=== PATIENT | female | born 1995 | race Two or more races ===

== ENCOUNTER → 2020-03-22 | Emergency (ER) | payer MEDICAID, OTHER ==
[~2020-03-22] VITALS: Ht 154.9 cm; Wt 49.9 kg
[~2020-03-22] MED LIST: ACETAMINOPHEN 325 MG TAB PO ONE; MORPHINE SULFATE 4 MG/ML SYR/VIAL IV ONE; ONDANSETRON HCL 4 MG/2 ML VIAL IV ONE; PANTOPRAZOLE 40 MG/10 ML VIAL INJ IV ONE; PROMETHAZINE HCL 25 MG/ML 1ML IV ONE; SODIUM CHLORIDE 0.9% 1,000 ML IV ONE; cefTRIAXone 1GM/50ML D5W 50 ML IV ONE; metroNIDAZOLE 500MG/100ML 100 ML IV ONE
[2020-03-22 17:26] LABS: Basophils # (auto) 0 10 ^3/uL (0-0.2); Basophils % (auto) 0.2 % (0.0-2.0); Eosinophils # (auto) 0 10 ^3/uL (0-0.8); Hematocrit 40.6 % (36.0-46.0); Hemoglobin 13.4 g/dL (12.2-16.2); Lymphocytes # (auto) 0.4 10 ^3/uL (0.4-5.4); Lymphocytes % (auto) 2.2 % (10.0-50.0); Mean Corpuscular Hemoglobin 29.1 pg (28.0-32.0); Mean Corpuscular Hgb Conc. 32.9 g/dL (32.0-36.0); Mean Corpuscular Volume 88.4 fL (80.0-100.0); Monocytes # (auto) 0.2 10 ^3/uL (0-1.3); Monocytes % (auto) 1.2 % (0.0-12.0); Neutrophils # (auto) 16.7 10 ^3/uL (1.6-8.6); Neutrophils % (auto) 96.4 % (37.0-80.0); Nucleated Red Blood Cells % 0.1 %; Platelet Count (auto) 193 10^3/uL (140-450); Red Cell Distribution Width 12.9 % (11.8-14.3); White Blood Cell 17.3 10^3/uL (4.4-10.8)
[2020-03-22 17:31] LABS: Urine Bacteria FEW /hpf (None Seen); Urine Blood Negative /uL (Negative); Urine Hyaline Cast FEW /lpf (0 - 2); Urine Mucus MANY (None Seen); Urine Specific Gravity 1.037 (1.001-1.035); Urine WBC 4 /hpf (0 - 5)
[2020-03-22 17:50] LABS: Albumin 4.2 g/dL (3.4-5.0); Potassium 3.6 mmol/L (3.5-5.1)
[2020-03-22 17:51] LABS: Alcohol, Urine < 3.0 mg/dL (0-5); Amphetamine Screen, Urine NEGATIVE (NEGATIVE); Barbiturate Scree,Urine NEGATIVE (NEGATIVE); Benzodiazephine Screen, Urine NEGATIVE (NEGATIVE); Cannabinoid Screen, Urine POSITIVE (NEGATIVE); Cocaine Screen, Urine NEGATIVE (NEGATIVE); Opiate Scree,Urine NEGATIVE (NEGATIVE); Phencyclidine Screen, Urine NEGATIVE (NEGATIVE)
[2020-03-22 17:52] LABS: BUN/Creatinine Ratio 12.3; Bilirubin, Total 1.2 mg/dL (0.2-1.0); Total Protein 8.1 g/dL (6.4-8.2)
[2020-03-22 23:00] VITALS: BP 118/77
== END | disposition home or self-care (01) ==
LOC: ER 16:15
DX: O26.891 Other specified pregnancy related conditions, first trimester (principal); O02.81 Inappropriate change in quantitative human chorionic gonadotropin (hCG) in early pregnancy; K29.70 Gastritis, unspecified, without bleeding; F12.188 Cannabis abuse with other cannabis-induced disorder; O21.8 Other vomiting complicating pregnancy; Z3A.01 Less than 8 weeks gestation of pregnancy
CPT/HCPCS: 36415; 76705; 76801; 80053; 80307; 81001; 82150; 83690; 84702; 85025; 96361; 96374; 96375; 96376; 99285; C9113; J2270; J2405; J2550; J7030